=== PATIENT | female | born 1975 | race Caucasian/White ===

== ENCOUNTER 2023-05-11 12:19 | Day surgery (SDC) | payer MEDICARE, MEDICAID, SELFPAY ==
[2023-04-13 13:51] VITALS: BMI 32.1
--- NOTE | 2023-05-11 | PATH_ITS ---
[facility] Accession Number: [id number] No. of containers..01 Tissue . 01 Material submitted: . uterus - BROAD LIGAMENT FIBROID . 01 Diagnosis: Broad Ligament Fibroid, Biopsies: Fragments of benign smooth muscle tissue with focal denerative changes, consistent with leiomyoma. Negative for significant cytologic atypia, increased mitotic activity, necrosis, or malignancy. STAR 05/16/2023 1542 Local . 01 Electronically signed: . Ruma Irvin MD, Pathologist NPI- [id number] . 01 Gross description: . The specimen is received in formalin labeled with the patient's name, , and broad ligmament fibroid, and consists of multiple fragments of ochoa, rubbery, soft tissue aggregating to 5.4 x 4.3 x 2.8 cm. Sectioning reveals a white, whorled, rubbery cut surface. No hemorrhage or necrosis is identified. Director Index sections are submitted in cassettes A1-A2. ([id number]) /STAR 05/12/2023 1012 Local . 01 Pathologist provided ICD-10: D25.9 . 01 CPT . 968101 Specimen Comment: A courtesy copy of this report has been sent to [facility] Performed at: 01 [facility] [address], [place], [place] [id number] MD Audie Arvizu MD Phone: [phone]
--- NOTE | 2023-05-11 12:40 | SUR.OPER ---
Lithotomy on padded OR bed, head on pillow, right arm secured on padded arm board at <90 degrees abduction. Legs secured in padded yellow fins stirrups. left arm tucked and padded
[2023-05-11 12:51] VITALS: BP 109/82; PULSE 87; RESP 18; TEMP 36.6; O2SAT 96; BMI 30.9
[2023-05-11 12:57] LABS: Add Manual Diff / Slide Review NO; Basophils Absolute Auto 0 /uL (0-100); Basophils Percent Auto 0.4 % (0-2); Eosinophils Absolute Auto 300 /uL (0-450); Eosinophils Percent Auto 3.6 % (2-4); Hemoglobin 14.3 g/dL (12.0-16.0); Lymphocytes Absolute Auto 1500 /uL (1100-4500); Lymphocytes Percent Auto 20.3 % (25-40); Mean Corpuscular HGB Conc 33.3 % (30-36); Mean Corpuscular Hemoglobin 30.6 PG (26-34); Mean Corpuscular Volume 91.8 fL (80-100); Monocytes Absolute Auto 500 /uL (0-900); Monocytes Percent Auto 7.1 % (3-14); Neutrophils Absolute Auto 5200 /uL (1500-7000); Neutrophils Percent Auto 68.6 % (50-75); Platelet Count 237 X10^3/uL (150-400); Red Blood Cell Count 4.68 X10^6/uL (4.0-5.2); Red Cell Distribution Width 12.7 % (11.6-14.8); White Blood Cell Count 7.6 X10^3/uL (4.5-11.0)
[2023-05-11] MEDS: ACETAMINOPHEN 325 MG TABLET 975 MG PO (13:02)
[2023-05-11] MEDS: HYDROCORTISONE 100 MG/2 ML VIAL 50 MG IV (13:02)
--- NOTE | 2023-05-11 13:10 | PM.PREOP ---
Pre-operative Note Interval Note History & Physical reviewed/Exam performed by Physician: Yes Changes to H&P: No H&P completed within 30 days and has changed as indicated here:: See H&P from 04/12/23. Per prior discussion, and discussion today, plan is for diagnostic laparoscopy, possible laparoscopic myomectomy. If unable to remove the fibroid laparoscopically, pt desires a biopsy of the fibroid, then end the surgery without conversion to open to complete the myomectomy. Pt would then be referred to gynecologic surgeon with robotic capabilities.
[2023-05-11] MEDS: LACTATED RINGERS 1,000 ML 42 ML IV ×2 (13:16→13:54)
[2023-05-11] MEDS: BUPIVACAINE 0.5% (PF) 30 ML VIAL INJ (13:53)
[2023-05-11] MEDS: VASOPRESSIN 20 UNIT/ML VIAL INJ (14:15)
[2023-05-11 15:30] VITALS: BP 102/68; PULSE 90; RESP 16; TEMP 36.5; O2SAT 98
--- NOTE | 2023-05-11 15:32 | P.OP_ITS ---
Operative Date/Time/Diagnoses Date of procedure: 05/11/23 Time of procedure: 13:30 Pre-op diagnosis: Broad ligament leiomyoma Post-op diagnosis: same Procedure & Clinicians Procedure: Diagnostic laparoscopy Laparoscopic myomectomy Same procedure as scheduled: Yes Indications: 47-year-old female presenting for planned laparoscopic myomectomy. She states that she had some urinary frequency and twinges of pain on the right side this year, which prompted imaging studies. Her pelvic ultrasound in September showed a normal-sized uterus with IUD in place with normal bilateral ovaries. It showed a 4.6 by 2.9 cm right adnexal solid lesion. She then had a pelvic MRI in October which showed a 4.2 x 3.6 x 5.6 cm lesion in the right margin of the uterus, separate from the ovary, consistent with a broad ligament fibroid. She reports twinges of pain, some pain with intercourse, and bloating. She also continues to have urinary frequency, but no pain with urination. She has a Mirena IUD in place, and reports light monthly bleeding. Surgeon: Martita Cho Refrigeration Manager: Monisha Frye Click Yes if Unassisted: No Anesthesia Type: General Operative Notes Findings: Normal appearing uterus, bilateral fallopian tubes, and bilateral ovaries. Significant omental adhesions to the anterior abdominal wall in the upper portion of the abdomen. 4-5cm uterine fibroid noted in the right broad ligament. Specimen(s): other (broad ligament fibroid) Estimated Blood Loss (mL): 75 Blood products transfused: none Procedure in detail: The risks, benefits, indications and alternatives of the procedure were reviewed with the patient and informed consent was obtained. The pt was taken to the operating room where general anesthesia was obtained without difficulty. The pt was then placed in the low lithotomy position using gel-padded Terrell Stirrups. Sequential compression devices were placed bilaterally for VTE prophylaxis. Pt was then prepped and draped in the usual sterile fashion. A King catheter was placed without difficulty. Attention was then turned to the patient?s abdomen where a 5mm skin incision was made in the inferior aspect of the umbilicus after injection of 0.25% marcaine. A 5mm trocar and sleeve were then carefully introduced into the peritoneal cavity under direct visualization at a 90-degree angle while tenting up the abdominal wall. Intra-peritoneal placement could not be confirmed, thus the trocar was removed. A Veress needle was then placed and 2 clicks confirmed intraperitoneal placement. A pneumoperitoneum was obtained with several liters of CO2 gas, maximum pressure of 15mmHg. A 5mm trocar was then placed under direct visualization with the laparoscope. Upon entry into the peritoneal cavity, structures immediately below the incision were inspected and found to be free of injury. Two additional 5mm trocars were placed, one in the left lateral aspect of the abdominal wall and one in the right, under direct laparoscopic visualization after injection of 0.25% marcaine at each site. A survey of the pt?s abdomen and pelvis was notable for the above findings. Using the monopolar scissors, the anterior leaf of the broad ligament on the right was opened. The fibroid was injected with 5 cc of diluted vasopressin. The fibroid was dissected out of the paravesical space using the monopolar scissors and the [place] LigaSure device. Once the fibroid was freed from its connections, it was placed in the posterior cul-de-sac. There was some bleeding from the anterior edge of the space, which was ligated with the LigaSure. Slow oozing was noted, so Surgifoam was placed in the space. The left lateral trocar was traded out for an 11 mm port. An Endo-Catch bag was then introduced into the abdominal cavity, and the fibroid was placed inside. The 11 mm trocar was then removed, and the fibroid was morcellated inside the bag, in order to facilitate removal from the abdomen. The fibroid was sent to pathology for review. A Roland Feldman device was then used to close the fascia of the 11 mm port with an 0 Vicryl suture. Reinspection of the pelvis showed good hemostasis. The remaining two 5 mm trocars were then removed. The gas was then turned off and all CO2 was removed from the pt?s abdomen. The skin incision sites were reapproximated using 4-0 monocryl and dermabond. The king catheter was removed from the bladder. At the completion of the case the sponge and needle counts were correct x 2. The patient tolerated the procedure well and was taken to the PACU in stable condition. Complications: none Post-operative Condition: stable Disposition: PACU Plan for aftercare: Discharge to home. Follow up in clinic as scheduled.
[2023-05-11 15:35] VITALS: BP 104/68; PULSE 97; RESP 16; O2SAT 98
[2023-05-11] MEDS: OXYCODONE IR 5 MG TABLET PO (15:44)
[2023-05-11 15:45] VITALS: BP 113/67; PULSE 92; RESP 16; O2SAT 98
[2023-05-11 15:58] VITALS: BP 125/74; PULSE 78; RESP 16; TEMP 36.2; O2SAT 99
== END 2023-05-11 16:27 | disposition home or self-care (01) ==
PROVIDERS: Referring Provider Student in an Organized Health Care Education/Training Program; Visit Provider Student in an Organized Health Care Education/Training Program
PROC: 0UB94ZZ Excision of Uterus, Percutaneous Endoscopic Approach (ICD-10-PCS; CPT 58545; principal; 2023-05-11 13:45)
DX: D25.9 Leiomyoma of uterus, unspecified (principal)
CPT/HCPCS: 58545; 36415; 85025; 86850; 86900; 86901; J0330; J1100; J1170; J1720; J1885; J2250; J2405; J2704; J3010

== ENCOUNTER → 2023-06-26 08:45 | Outpatient (CLI) | payer MEDICARE, MEDICAID, SELFPAY ==
[2023-06-26 09:35] LABS: Influenza A - CEPHEID Flu A NEGATIVE (NEGATIVE); Influenza B - CEPHEID Flu B NEGATIVE (NEGATIVE); Respiratory Syncytial Virus Negative (Negative)
[2023-06-26 09:37] LABS: COVID-19 CEPHEID 4-PLEX PCR POSITIVE (Negative)
== END ==
PROVIDERS: Visit Provider Physician Assistant
DX: Z20.822 Contact with and (suspected) exposure to COVID-19 (principal)
CPT/HCPCS: 0241U

== ENCOUNTER → 2023-10-26 09:02 | Outpatient (CLI) | payer MEDICARE, MEDICAID, SELFPAY ==
[2023-10-26 10:39] LABS: Influenza A - CEPHEID Flu A NEGATIVE (NEGATIVE); Influenza B - CEPHEID Flu B NEGATIVE (NEGATIVE); Respiratory Syncytial Virus Negative (Negative)
[2023-10-26 10:41] LABS: COVID-19 CEPHEID 4-PLEX PCR Negative (Negative)
== END ==
PROVIDERS: Visit Provider Nurse Practitioner Family
DX: R05.1 Acute cough (principal)
CPT/HCPCS: 0241U

== ENCOUNTER → 2024-01-02 13:11 | Outpatient (CLI) | payer MEDICARE, MEDICAID, SELFPAY ==
[2024-01-02 14:31] LABS: Appearance Urine UA CLEAR; Bilirubin Urine UA NEGATIVE (NEGATIVE); Color Urine UA YELLOW; Glucose Urine UA NEGATIVE (Negative); Ketones Urine UA TRACE (NEGATIVE); Leukocyte Esterase Urine UA NEGATIVE (NEGATIVE); Nitrite Urine UA NEGATIVE (Negative); Occult Blood Urine UA NEGATIVE (Negative); Protein Urine UA NEGATIVE (Negative); Specific Gravity Urine UA >=1.030 (1.000-1.035)
[2024-01-02 14:34] LABS: pH Urine UA 5.5 (4.5-8.0)
[2024-01-02 14:40] LABS: Bacteria Urine None Seen; Culture Indicated Urine Cult Not Indicated; RBC Urine None Seen (0-5/HPF); Squamous Epithelial Cell Urine None Seen (0-5/HPF); Urine Volume 10mL (spun); WBC Urine None Seen (0-5/HPF)
== END ==
PROVIDERS: Referring Provider Student in an Organized Health Care Education/Training Program; Visit Provider Student in an Organized Health Care Education/Training Program
DX: R35.0 Frequency of micturition (principal)
CPT/HCPCS: 81001

== ENCOUNTER → 2024-01-04 14:56 | Outpatient (CLI) | payer MEDICARE, MEDICAID, SELFPAY | PROVIDERS: Visit Provider Student in an Organized Health Care Education/Training Program | DX: N94.89 Other specified conditions associated with female genital organs and menstrual cycle (principal); Z11.3 Encounter for screening for infections with a predominantly sexual mode of transmission; R39.15 Urgency of urination | CPT/HCPCS: 87086; 87480; 87491; 87510; 87563; 87591; 87660 ==

== ENCOUNTER → 2024-01-04 15:03 | Outpatient (CLI) | payer MEDICARE, MEDICAID, SELFPAY ==
[2024-01-04 16:11] LABS: Alanine Aminotransferase 13 IU/L (<35); Albumin 4.3 g/dL (3.5-5.0); Albumin Globulin Ratio 1.4 (1.0-2.8); Alkaline Phosphatase 90 U/L (38-126); Aspartate Aminotransferase 20 IU/L (14-36); Bilirubin Total 0.4 mg/dL (0.2-1.3); Bilirubin Unconjugated 0.2 mg/dL (0.0-1.1); HEMOLYSIS 24 (0-50); Total Protein 7.3 g/dL (6.3-8.2)
[2024-01-05 01:55] LABS: HIV 1 & 2 Ab/Ag 4th Gen Combo NEGATIVE (NEGATIVE); Hep C Virus Ab w/Reflex Quant NEGATIVE s/c (NEGATIVE); Hepatitis B Surface Antigen NEGATIVE s/c (NEGATIVE)
== END ==
LOC: LAB 15:05
PROVIDERS: Referring Provider Student in an Organized Health Care Education/Training Program; Visit Provider Student in an Organized Health Care Education/Training Program
DX: Z11.3 Encounter for screening for infections with a predominantly sexual mode of transmission (principal); N94.89 Other specified conditions associated with female genital organs and menstrual cycle; R39.15 Urgency of urination
CPT/HCPCS: 36415; 80076; 86592; 86803; 87086; 87340; 87389; 87480; 87491; 87510; 87563; 87591; 87660